=== PATIENT | female | born 1970 | race Caucasian/White ===

== ENCOUNTER 2021-05-30 15:53 | Emergency (ER) | payer BC, OTHER ==
[~2021-05-30] VITALS: Ht 157.5 cm; Wt 68.0 kg
[2021-05-30] MEDS ORDERED: SODIUM CHLORIDE 0.9% 1000ML 500 ML IV ONE (16:30)
[2021-05-30] MEDS ORDERED: KETOROLAC TROMETHAMINE 30 MG/ML VIAL IV ONE (17:00)
[2021-05-30] MEDS ORDERED: CLINDAMYCIN PHOS 900MG/ 50ML 50 ML IV ONE (17:00)
== END 2021-05-30 17:42 | disposition home or self-care (01) ==
LOC: ER 16:03
DX: K04.7 Periapical abscess without sinus (principal); K02.9 Dental caries, unspecified; I10 Essential (primary) hypertension; E87.6 Hypokalemia; F17.210 Nicotine dependence, cigarettes, uncomplicated
CPT/HCPCS: 99283; J1885; J7030

== ENCOUNTER 2022-02-01 16:34 | Emergency (ER) | payer OTHER ==
[~2022-02-01] VITALS: Ht 157.5 cm; Wt 68.0 kg
[2022-02-01] MEDS ORDERED: ONDANSETRON ODT4 MG PO (17:11)
[2022-02-01] MEDS ORDERED: MUCINEX DM ER1 EACH PO (17:11)
== END 2022-02-01 18:26 | disposition home or self-care (01) ==
LOC: ER 16:50
DX: R05.9 Cough, unspecified (principal); U07.1 COVID-19; I10 Essential (primary) hypertension; D64.9 Anemia, unspecified; E87.6 Hypokalemia
CPT/HCPCS: 99283

== ENCOUNTER 2022-06-06 02:52 | Emergency (ER) | payer OTHER ==
[~2022-06-06] VITALS: Ht 157.5 cm; Wt 68.0 kg
[~2022-06-06 02:52] MED LIST: MUCINEX DM ER1 EACH PO; ONDANSETRON ODT4 MG PO
[2022-06-06] MEDS ORDERED: KETOROLAC TROMETHAMINE 30 MG/ML VIAL IM STA (03:15)
[2022-06-06] MEDS ORDERED: PENICILLIN V P500 MG PO (03:29)
[2022-06-06] MEDS ORDERED: KETOROLAC TROMETHAMINE 60 MG/2 ML VIAL ONE (03:31)
== END 2022-06-06 03:33 | disposition home or self-care (01) ==
LOC: ER 02:54
DX: K04.7 Periapical abscess without sinus (principal); K02.9 Dental caries, unspecified; I10 Essential (primary) hypertension; D64.9 Anemia, unspecified
CPT/HCPCS: 99282; J1885

== ENCOUNTER 2023-01-02 19:25 | Emergency (ER) | payer SELFPAY ==
[~2023-01-02] VITALS: Ht 157.5 cm; Wt 68.0 kg
[~2023-01-02 19:25] MED LIST changes: +PENICILLIN V P500 MG PO
[2023-01-02 20:13] LABS: BASOPHILS % 0.3 % (0.0-1.0); EOSINOPHILS % 0.1 % (0.0-6.0); HEMATOCRIT 30.9 % (34.2-44.1); LYMPHOCYTES # (AUTO) 0.4 (1.0-3.2); LYMPHOCYTES % 5.8 % (18.0-39.1); MEAN CORPUSCULAR HEMOGLOBIN 30.4 pg (28-32); MEAN CORPUSCULAR HGB CONC 32.4 g/dL (31-35); MEAN CORPUSCULAR VOLUME 93.9 fL (81-99); MONOCYTES # (AUTO) 0.5 (0.2-0.8); MONOCYTES % 7.5 % (4.4-11.3); NEUTROPHILS # (AUTO) 6.1 (2.1-6.9); NEUTROPHILS % 85.9 % (38.7-80.0); PLATELET COUNT 203 x10e3/uL (140-360); RED BLOOD COUNT 3.29 x10e6/uL (3.6-5.1); RED CELL DISTRIBUTION WIDTH 11.9 % (11.7-14.4)
[2023-01-02 20:28] LABS: ALBUMIN 2.9 g/dL (3.5-5.0); ALBUMIN/GLOBULIN RATIO 0.9 (0.8-2.0); ANION GAP 13.7 mmol/L (8-16); CALCIUM 8.9 mg/dL (8.4-10.2); CREATININE, SERUM 0.78 mg/dL (0.57-1.11); POTASSIUM 3.7 mmol/L (3.5-5.1)
[2023-01-02] MEDS ORDERED: IOPAMIDOL 370 MG/ML 100 ML INFUS..BTL INJ ONE (21:01)
[2023-01-02 23:15] VITALS: BP 130/68; O2SAT 100
== END 2023-01-02 22:55 | disposition home or self-care (01) ==
LOC: ER 19:33
DX: R06.02 Shortness of breath (principal); R07.89 Other chest pain; R73.9 Hyperglycemia, unspecified; I10 Essential (primary) hypertension; R00.1 Bradycardia, unspecified; Z20.822 Contact with and (suspected) exposure to COVID-19; R94.31 Abnormal electrocardiogram [ECG] [EKG]
CPT/HCPCS: 36415; 71260; 80053; 82550; 83690; 83880; 84484; 85025; 85379; 93005; 99284; Q9967; U0002